=== PATIENT | male | born 1985 | race Caucasian/White ===

== ENCOUNTER 2021-03-21 09:05 | Inpatient (IN) | payer OTHER ==
[2021-03-21 11:51] VITALS: BMI 27.3
[2021-03-21] MEDS ORDERED: ACETAMINOPHEN 325 MG TABLET (FP) PO PRN ×2 (12:57)
[2021-03-21] MEDS ORDERED: NICOTINE 10 MG CARTRIDGE (INHALER) IH PRN (12:57)
[2021-03-21] MEDS ORDERED: methaDONE HCL 10 MG TABLET (FOR DETOX USE ONLY) PO ONE (12:57)
[2021-03-21] MEDS ORDERED: IBUPROFEN 400 MG TABLET (FP) PO PRN (12:57)
[2021-03-21] MEDS ORDERED: ONDANSETRON *ODT* 4 MG TABLET SL PRN (12:57)
[2021-03-21] MEDS ORDERED: MENTHOL/PHENOL 1 EACH UD MM PRN (12:57)
[2021-03-21] MEDS ORDERED: MAGNESIUM CITRATE 300 ML BOTTLE PO PRN (12:57)
[2021-03-21] MEDS ORDERED: MAG HYDROX/AL HYDROX/SIMETH 30 ML UNIT-DOSE CUP PO PRN (12:57)
[2021-03-21] MEDS ORDERED: cloNIDine HCL 0.1 MG TABLET PO PRN (12:57)
[2021-03-21] MEDS ORDERED: BISMUTH SUBSALICYLATE 524 MG/30 ML PO PRN (12:57)
[2021-03-21] MEDS ORDERED: MAGNESIUM HYDROX 2400MG/30ML ORAL SUSPENSION 30 ML CUP PO PRN (12:57)
[2021-03-21] MEDS: clonazePAM 0.5 MG ODT TABLETS SL PRN (16:26)
[2021-03-21] MEDS: PRENATAL VITAMINS W/ FOLIC ACID TABLET (FP) PO SCH (16:38)
[2021-03-21] MEDS: hydrOXYzine PAMOATE 25 MG CAPSULE (FP) PO SCH ×3 (16:38→22:39)
[2021-03-21] MEDS ORDERED: MELATONIN 5 MG TABLETS PO SCH (22:00)
[2021-03-21] MEDS: THIAMINE HCL 100 MG TABLET (FP) PO SCH (22:40)
[2021-03-22] MEDS: hydrOXYzine PAMOATE 25 MG CAPSULE (FP) PO SCH ×5 (06:35→22:15)
[2021-03-22] MEDS ORDERED: methaDONE HCL 10 MG TABLET (FOR DETOX USE ONLY) ONE (08:43)
[2021-03-22 10:13] LABS: HEMATOCRIT 38.3 % (35.4-49); HEMOGLOBIN 12.7 GM/dL (11.7-16.9); MCH 29.6 pg (25.7-33.7); MCHC 33.3 g/dl (32.0-35.9); MEAN PLT VOLUME 8.8 fl (7.5-11.1); PLATELET COUNT 271 10^3/uL (134-434); RDW 13.4 % (11.9-15.9)
[2021-03-22 10:16] LABS: ALBUMIN 3.6 g/dl (3.4-5.0); CALCIUM 8.6 mg/dL (8.5-10.1)
[2021-03-22 10:17] LABS: BLOOD UREA NITROGEN 10.9 mg/dL (7-18)
[2021-03-22 10:18] LABS: CREATININE 0.8 mg/dL (0.55-1.3); TOT PROT 6.6 g/dl (6.4-8.2)
[2021-03-22 10:19] LABS: BILIRUBIN,TOTAL 0.7 mg/dL (0.2-1)
[2021-03-22] MEDS: PRENATAL VITAMINS W/ FOLIC ACID TABLET (FP) PO SCH (10:50)
[2021-03-22] MEDS: clonazePAM 0.5 MG ODT TABLETS SL PRN ×2 (10:52→22:17)
[2021-03-22] MEDS: THIAMINE HCL 100 MG TABLET (FP) PO SCH (22:15)
[2021-03-22] MEDS: SUVOREXANT 10 MG TABLET PO PRN (22:16)
[2021-03-23 01:31] LABS: URINE APPEARANCE CLEAR; URINE BILIRUBIN NEGATIVE (NEGATIVE); URINE COLOR YELLOW; URINE GLUCOSE (UA) NEGATIVE (NEGATIVE); URINE KETONE TRACE (NEGATIVE); URINE LEUK ESTERASE NEGATIVE (NEGATIVE); URINE NITRITE NEGATIVE (NEGATIVE); URINE PROTEIN NEGATIVE (NEGATIVE); URINE UROBILINOGEN 0.2 mg/dL (0.2-1.0)
[2021-03-23] MEDS: hydrOXYzine PAMOATE 25 MG CAPSULE (FP) PO SCH ×5 (07:01→22:23)
[2021-03-23] MEDS ORDERED: methaDONE HCL 10 MG TABLET (FOR DETOX USE ONLY) PO ONE (10:00)
[2021-03-23] MEDS: PRENATAL VITAMINS W/ FOLIC ACID TABLET (FP) PO SCH (10:11)
[2021-03-23] MEDS: clonazePAM 0.5 MG ODT TABLETS SL PRN ×2 (10:11→22:26)
[2021-03-23] MEDS: THIAMINE HCL 100 MG TABLET (FP) PO SCH (22:23)
[2021-03-23] MEDS: METHOCARBAMOL 500 MG TABLET PO PRN (22:25)
[2021-03-23] MEDS: SUVOREXANT 10 MG TABLET PO PRN (22:25)
[2021-03-24] MEDS: hydrOXYzine PAMOATE 25 MG CAPSULE (FP) PO SCH ×5 (05:54→22:17)
[2021-03-24] MEDS ORDERED: methaDONE HCL 10 MG TABLET (FOR DETOX USE ONLY) ONE (09:52)
[2021-03-24] MEDS: PRENATAL VITAMINS W/ FOLIC ACID TABLET (FP) PO SCH (10:37)
[2021-03-24] MEDS: clonazePAM 0.5 MG ODT TABLETS SL PRN (10:38)
[2021-03-24] MEDS: THIAMINE HCL 100 MG TABLET (FP) PO SCH (22:17)
[2021-03-24] MEDS: SUVOREXANT 10 MG TABLET PO PRN (22:17)
[2021-03-24] MEDS: METHOCARBAMOL 500 MG TABLET PO PRN (22:18)
[2021-03-25] MEDS: hydrOXYzine PAMOATE 25 MG CAPSULE (FP) PO SCH ×5 (05:34→22:37)
[2021-03-25] MEDS ORDERED: methaDONE HCL 10 MG TABLET (FOR DETOX USE ONLY) PO ONE (10:00)
[2021-03-25] MEDS: PRENATAL VITAMINS W/ FOLIC ACID TABLET (FP) PO SCH (10:11)
[2021-03-25] MEDS ORDERED: SUVOREXANT 10 MG TABLET PO ONE (22:35)
[2021-03-25] MEDS: THIAMINE HCL 100 MG TABLET (FP) PO SCH (22:37)
[2021-03-25] MEDS: METHOCARBAMOL 500 MG TABLET PO PRN (22:37)
[2021-03-26] MEDS: hydrOXYzine PAMOATE 25 MG CAPSULE (FP) PO SCH ×3 (05:13→14:21)
[2021-03-26] MEDS: PRENATAL VITAMINS W/ FOLIC ACID TABLET (FP) PO SCH (10:16)
[2021-03-26 12:45] VITALS: BP 108/77; PULSE 75; TEMP 97.1
== END 2021-03-26 14:28 | disposition other institution (70) | DRG 773 ==
LOC: YASAS 09:05 → Y3N 14:14
PROVIDERS: ADMIT Allergy & Immunology; ATTEND Allergy & Immunology
PROC: HZ2ZZZZ Detoxification Services for Substance Abuse Treatment (ICD-10-PCS; principal; 2021-03-21)
DX: F11.23 Opioid dependence with withdrawal (principal); F12.90 Cannabis use, unspecified, uncomplicated; F19.282 Other psychoactive substance dependence with psychoactive substance-induced sleep disorder; F19.280 Other psychoactive substance dependence with psychoactive substance-induced anxiety disorder; G47.00 Insomnia, unspecified; J45.909 Unspecified asthma, uncomplicated; K21.9 Gastro-esophageal reflux disease without esophagitis; L40.9 Psoriasis, unspecified; N39.0 Urinary tract infection, site not specified; Z87.891 Personal history of nicotine dependence; Z56.0 Unemployment, unspecified; Z59.00 Homelessness unspecified
CPT/HCPCS: 36415; 80053; 81003; 85027; 86780; C9803-CS; Q0162; U0003; U0005

== ENCOUNTER 2021-03-26 14:37 | Inpatient (IN) | payer OTHER ==
[2021-03-26] MEDS ORDERED: MAGNESIUM HYDROX 2400MG/30ML ORAL SUSPENSION 30 ML CUP PO PRN (15:36)
[2021-03-26] MEDS ORDERED: LOPERAMIDE HCL 2 MG CAPSULE PO PRN (15:36)
[2021-03-26] MEDS ORDERED: MAG HYDROX/AL HYDROX/SIMETH 30 ML UNIT-DOSE CUP PO PRN (15:36)
[2021-03-26] MEDS ORDERED: MAGNESIUM CITRATE 300 ML BOTTLE PO PRN (15:36)
[2021-03-26] MEDS ORDERED: P-EPHED 60MG/TRIPROLIDI 2.5MG TABLET PO PRN (15:36)
[2021-03-26] MEDS ORDERED: MENTHOL/PHENOL 1 EACH UD MM PRN (15:36)
[2021-03-26] MEDS ORDERED: NICOTINE 10 MG CARTRIDGE (INHALER) IH PRN (15:36)
[2021-03-26] MEDS ORDERED: guaiFENesin 200 MG/10 ML 10 ML UNIT-DOSE CUPS PO PRN (15:36)
[2021-03-26] MEDS ORDERED: ACETAMINOPHEN 325 MG TABLET (FP) PO PRN (15:36)
[2021-03-26] MEDS: NICOTINE 7 MG/24 HOURS TOPICAL PATCH TD SCH (15:49)
[2021-03-26] MEDS: PRENATAL VITAMINS W/ FOLIC ACID TABLET (FP) PO SCH (15:49)
[2021-03-26] MEDS: hydrOXYzine PAMOATE 25 MG CAPSULE (FP) PO SCH ×2 (18:10→21:26)
[2021-03-26] MEDS: THIAMINE HCL 100 MG TABLET (FP) PO SCH (21:26)
[2021-03-26] MEDS ORDERED: MELATONIN 5 MG TABLETS PO SCH (22:00)
[2021-03-27] MEDS: hydrOXYzine PAMOATE 25 MG CAPSULE (FP) PO SCH ×5 (06:18→21:29)
[2021-03-27] MEDS: PRENATAL VITAMINS W/ FOLIC ACID TABLET (FP) PO SCH (09:26)
[2021-03-27] MEDS: NICOTINE 7 MG/24 HOURS TOPICAL PATCH TD SCH (09:27)
[2021-03-27] MEDS: IBUPROFEN 400 MG TABLET (FP) PO PRN (09:27)
[2021-03-27] MEDS: METHOCARBAMOL 500 MG TABLET PO SCH ×2 (13:27→21:29)
[2021-03-27] MEDS: SUVOREXANT 10 MG TABLET PO PRN (21:29)
[2021-03-27] MEDS: THIAMINE HCL 100 MG TABLET (FP) PO SCH (21:29)
[2021-03-28] MEDS: hydrOXYzine PAMOATE 25 MG CAPSULE (FP) PO SCH ×5 (06:59→21:45)
[2021-03-28] MEDS: METHOCARBAMOL 500 MG TABLET PO SCH ×3 (06:59→21:45)
[2021-03-28] MEDS: NICOTINE 7 MG/24 HOURS TOPICAL PATCH TD SCH (10:16)
[2021-03-28] MEDS: PRENATAL VITAMINS W/ FOLIC ACID TABLET (FP) PO SCH (10:16)
[2021-03-28] MEDS: IBUPROFEN 400 MG TABLET (FP) PO PRN (10:18)
[2021-03-28 15:09] LABS: PH,URINE 7.5 (5.0-8.0); URINE APPEARANCE CLEAR; URINE BILIRUBIN NEGATIVE (NEGATIVE); URINE COLOR YELLOW; URINE GLUCOSE (UA) NEGATIVE (NEGATIVE); URINE KETONE NEGATIVE (NEGATIVE); URINE LEUK ESTERASE NEGATIVE (NEGATIVE); URINE NITRITE NEGATIVE (NEGATIVE); URINE PROTEIN NEGATIVE (NEGATIVE); URINE UROBILINOGEN 0.2 mg/dL (0.2-1.0)
[2021-03-28] MEDS: THIAMINE HCL 100 MG TABLET (FP) PO SCH (21:45)
[2021-03-28] MEDS: SUVOREXANT 10 MG TABLET PO PRN (21:46)
[2021-03-29] MEDS: hydrOXYzine PAMOATE 25 MG CAPSULE (FP) PO SCH ×5 (06:25→21:39)
[2021-03-29] MEDS: METHOCARBAMOL 500 MG TABLET PO SCH ×3 (06:25→21:39)
[2021-03-29] MEDS: PRENATAL VITAMINS W/ FOLIC ACID TABLET (FP) PO SCH (10:14)
[2021-03-29] MEDS: NICOTINE 7 MG/24 HOURS TOPICAL PATCH TD SCH (10:14)
[2021-03-29] MEDS: SUVOREXANT 10 MG TABLET PO PRN (21:40)
[2021-03-29] MEDS: THIAMINE HCL 100 MG TABLET (FP) PO SCH (22:20)
[2021-03-30] MEDS: METHOCARBAMOL 500 MG TABLET PO SCH ×3 (06:42→21:30)
[2021-03-30] MEDS: hydrOXYzine PAMOATE 25 MG CAPSULE (FP) PO SCH ×5 (06:42→21:28)
[2021-03-30] MEDS: PRENATAL VITAMINS W/ FOLIC ACID TABLET (FP) PO SCH (10:08)
[2021-03-30] MEDS: NICOTINE 7 MG/24 HOURS TOPICAL PATCH TD SCH (10:08)
[2021-03-30] MEDS: THIAMINE HCL 100 MG TABLET (FP) PO SCH (21:28)
[2021-03-30] MEDS: SUVOREXANT 10 MG TABLET PO PRN (21:30)
[2021-03-30] MEDS ORDERED: SUVOREXANT 10 MG TABLET PO PRN (22:00)
[2021-03-31] MEDS: hydrOXYzine PAMOATE 25 MG CAPSULE (FP) PO SCH ×5 (06:31→21:32)
[2021-03-31] MEDS: METHOCARBAMOL 500 MG TABLET PO SCH (06:31)
[2021-03-31] MEDS: PRENATAL VITAMINS W/ FOLIC ACID TABLET (FP) PO SCH (10:18)
[2021-03-31] MEDS: NICOTINE 7 MG/24 HOURS TOPICAL PATCH TD SCH (10:18)
[2021-03-31] MEDS: CYCLOBENZAPRINE HCL 10 MG TABLET (FP) PO PRN ×2 (13:59→18:23)
[2021-03-31] MEDS: busPIRone HCL 10 MG TABLET (FP) PO SCH ×2 (13:59→21:32)
[2021-03-31] MEDS: THIAMINE HCL 100 MG TABLET (FP) PO SCH (21:32)
[2021-04-01] MEDS: hydrOXYzine PAMOATE 25 MG CAPSULE (FP) PO SCH ×5 (06:44→21:19)
[2021-04-01] MEDS: busPIRone HCL 10 MG TABLET (FP) PO SCH ×3 (06:44→21:19)
[2021-04-01] MEDS: PRENATAL VITAMINS W/ FOLIC ACID TABLET (FP) PO SCH (10:06)
[2021-04-01] MEDS: NICOTINE 7 MG/24 HOURS TOPICAL PATCH TD SCH (10:06)
[2021-04-01] MEDS: CYCLOBENZAPRINE HCL 10 MG TABLET (FP) PO PRN ×2 (10:06→21:21)
[2021-04-01] MEDS: THIAMINE HCL 100 MG TABLET (FP) PO SCH (21:19)
[2021-04-01] MEDS: SUVOREXANT 10 MG TABLET PO PRN (21:21)
[2021-04-02] MEDS: busPIRone HCL 10 MG TABLET (FP) PO SCH ×3 (06:32→21:47)
[2021-04-02] MEDS: hydrOXYzine PAMOATE 25 MG CAPSULE (FP) PO SCH ×5 (06:32→21:48)
[2021-04-02] MEDS: PRENATAL VITAMINS W/ FOLIC ACID TABLET (FP) PO SCH (11:07)
[2021-04-02] MEDS: NICOTINE 7 MG/24 HOURS TOPICAL PATCH TD SCH (11:07)
[2021-04-02] MEDS: THIAMINE HCL 100 MG TABLET (FP) PO SCH (21:47)
[2021-04-02] MEDS: CYCLOBENZAPRINE HCL 10 MG TABLET (FP) PO PRN (21:47)
[2021-04-03 07:12] VITALS: BP 135/96; PULSE 77; TEMP 98
[2021-04-03] MEDS: hydrOXYzine PAMOATE 25 MG CAPSULE (FP) PO SCH ×2 (07:15→10:05)
[2021-04-03] MEDS: busPIRone HCL 10 MG TABLET (FP) PO SCH (07:15)
[2021-04-03] MEDS: NICOTINE 7 MG/24 HOURS TOPICAL PATCH TD SCH (10:04)
[2021-04-03] MEDS: PRENATAL VITAMINS W/ FOLIC ACID TABLET (FP) PO SCH (10:04)
== END 2021-04-03 10:36 | disposition home or self-care (01) | DRG 772 ==
LOC: YASAS 14:37 → Y3W 14:38 → Y5N 03-27 14:19
PROVIDERS: ADMIT Allergy & Immunology; ATTEND Allergy & Immunology
PROC: HZ42ZZZ Group Counseling for Substance Abuse Treatment, Cognitive-Behavioral (ICD-10-PCS; principal; 2021-03-26)
DX: F11.20 Opioid dependence, uncomplicated (principal); F12.20 Cannabis dependence, uncomplicated; F19.282 Other psychoactive substance dependence with psychoactive substance-induced sleep disorder; J45.909 Unspecified asthma, uncomplicated; K21.9 Gastro-esophageal reflux disease without esophagitis; L40.9 Psoriasis, unspecified; M62.838 Other muscle spasm; R35.0 Frequency of micturition; Z59.00 Homelessness unspecified
CPT/HCPCS: 81003; 87086; C9803; U0003; U0005